=== PATIENT | female | born 1970 | race Caucasian/White ===

== ENCOUNTER 2019-12-23 05:19 | Day surgery (SDC) | payer BC ==
[~2019-12-23] VITALS: Ht 177.8 cm; Wt 104.0 kg
[2019-12-23] VITALS (10 sets, daily range): BP systolic 116–128; BP diastolic 60–84; PULSE 56–74; TEMP 97.5–97.9
[2019-12-23] MEDS ORDERED: LEVOXYL0.1 MG PO (06:11)
[2019-12-23] MEDS ORDERED: LASIX 20MG TABL20 MG PO (06:11)
[2019-12-23] MEDS ORDERED: FASTIN30 MG PO (06:12)
[2019-12-23] MEDS ORDERED: NATURE'S BLEND1 SG3 PO (06:13)
--- NOTE | 2019-12-23 06:14 | NUR ---
TO [facility] AT 0535- CALL LIGHT IN REACH
--- NOTE | 2019-12-23 10:16 | NUR ---
Patient to room via bed from PACU. Alert and oriented x3. Denies pain at this time. [place] to dependent drainage draining clear yellow urine. Incision to low abd with edges well approximated, no redness/swelling/discharge noted. Glue in place. Anamika pad CDI. Patient oriented to room. Provided with water and jello. Denies additional needs.
--- NOTE | 2019-12-23 16:38 | NUR ---
Assist patient up to chair. Small area of blood noted on chux. Patient assisted into bathroom, panties and pad removed, pericare provided, clean mesh panties and pad applied. Patient returns into room and sits up in chair. Rates pain 6/10 in abd, describes as crampy, requests pain pill. Administer Percocet as prescribed. Patient denies additional needs at this time.
--- NOTE | 2019-12-23 18:22 | NUR ---
Patient would like to get back in bed. Assist in transfer from chair to bed. Rates pain in abd 4/10 at this time. Denies any additional needs.
--- NOTE | 2019-12-23 20:45 | NUR ---
Resting in bed. Assessment complete. Lungs clear. Heart sounds normal. Bowels active x4. Pulses present throughout. Bilateral lower ext edema +1. IV left hand infusing without complications. Denies pain. Denies other needs at this time. Call light in reach.
[2019-12-24] VITALS: BP 120/70; PULSE 67; TEMP 97.9
--- NOTE | 2019-12-24 00:25 | NUR ---
Resting in bed. Denies pain. ABD incision CDI. Call light in reach.
--- NOTE | 2019-12-24 02:06 | NUR ---
Resting in bed. Denies needs. Call light in reach.
--- NOTE | 2019-12-24 04:07 | NUR ---
Reports 5/10 lower ABD cramping. Provided with PRN tylenol. Call light in reach.
[2019-12-24 04:55] VITALS: BP 131/72; PULSE 80; TEMP 98.8
--- NOTE | 2019-12-24 06:31 | NUR ---
Patient required x1 dose of tylenol for pain control throughout night. Otherwise uneventful night. Damaris removed this AM at 0610. . Call light in reach.
--- NOTE | 2019-12-24 07:05 | NUR ---
Report given to NICKY Pastor
--- NOTE | 2019-12-24 07:14 | NUR ---
Sitting up in chair. Minimal pain at this time. Patient says that she is going to go in the bathroom here soon to see if she can urinate. Incision to low abd with edges well approximated, no redness/swelling/discharge, glue remains intact, bruising noted at site. Packing remains in place, explain that we will wait on WILLIE Matt, to come in to ask about the packing. Patient denies additional needs at this time.
--- NOTE | 2019-12-24 07:29 | NUR ---
Patient able to void 150ml, urine bloody in color. Packing remains in place. Patient lies in bed, post residual bladder scan performed. Unable to locate any amount of urine in bladder on scan, patient tearful due to pain of pressing on abd area with the scan. Does not want Percocet as it keeps her up. We will ask if this can be changed to [employer] as that has worked well for her in the past. Patient remains in bed. Denies additional needs at this time.
[2019-12-24 07:42] VITALS: BP 130/76; PULSE 67; TEMP 97.8
--- NOTE | 2019-12-24 08:04 | NUR ---
WILLIE aMtt, in room and orders received to remove packing. Packing removed at this time. Patient tolerates with little difficulty. Remains sitting up in bed. Denies needs at this time.
--- NOTE | 2019-12-24 09:08 | NUR ---
Administer Armstrong as prescribed for abd pain per patient request. Remains sitting in bed at this time.
--- NOTE | 2019-12-24 10:15 | NUR ---
Review discharge instructions with the patient. Questions answered. Patient verbalizes understanding and signs discharge paperwork. Discharge packet provided to the patient. Patient will call when her ride is here to pick her up. Will gather all her belongings and get dressed at this time.
--- NOTE | 2019-12-24 11:41 | NUR ---
First visit from the supervisor pumping station. No needs right now.
--- NOTE | 2019-12-24 11:46 | NUR ---
Patient uses call light and explains that her ride is here to pick her up. Basia RN, assists patient out to POV with all personal belongings. Patient requested to walk and refused wheelchair.
== END 2019-12-24 11:46 | disposition home or self-care (01) ==
LOC: SDCO 05:19 → SURG 05:19 → SDCO 07:30 → SURG 10:14 → SDCO 12-24 11:46
DX: N39.3 Stress incontinence (female) (male) (principal); G47.33 Obstructive sleep apnea (adult) (pediatric); E66.9 Obesity, unspecified; E03.9 Hypothyroidism, unspecified; M50.30 Other cervical disc degeneration, unspecified cervical region; Z20.828 Contact with and (suspected) exposure to other viral communicable diseases; Z98.51 Tubal ligation status; Z87.891 Personal history of nicotine dependence; Z79.899 Other long term (current) drug therapy; Z88.1 Allergy status to other antibiotic agents
CPT/HCPCS: OP; A4314; C1762; J0690; J1100; J1170; J1885; J2405; J2704; J3010; J7120

== ENCOUNTER 2020-08-13 08:55 | Observation (INO) | payer BC ==
[~2020-08-13 08:55] MED LIST: FASTIN30 MG PO; LASIX 20MG TABL20 MG PO; LEVOXYL0.1 MG PO; NATURE'S BLEND1 SG3 PO
[2020-08-13 09:46] VITALS: BP 122/63; PULSE 61; TEMP 98.1
[2020-08-13] MEDS ORDERED: PREMPRO 0.3 MG-1 TAB (10:16)
[2020-08-13 11:12] VITALS: BP 112/61; PULSE 65; TEMP 98.1
[2020-08-13 13:37] LABS: BASO % 0.2 % (0.0-2.0); GRAN % 81.7 % (42.2-75.2); HEMOGLOBIN 10.6 g/dl (12.5-16.0); LYMPH # 1.4 (1.2-3.4); LYMPH % 10.5 % (20.0-51.0); MEAN CELL VOLUME 96 fl (80.0-100.0); MEAN CORPUSCULAR HEMOGLOBIN 31 pg (27.0-31.0); MEAN CORPUSCULAR HGB CONC 32 g/dl (33.0-37.0); MEAN PLATELET VOLUME 10.3 fl (7.4-10.4); MONO % 7.3 % (1.7-9.3); PLATELET COUNT 252 K/mm3 (130-400); RED BLOOD COUNT 3.41 M/mm3 (4.10-5.30); REDCELL DISTRIBUTION WIDTH-CV 13.3 % (11.5-14.5)
[2020-08-13 13:38] LABS: HEMATOCRIT 32.8 % (37.0-47.0)
[2020-08-13 16:37] VITALS: BP 121/63; PULSE 62; TEMP 98
--- NOTE | 2020-08-13 19:28 | NUR ---
Patient transferred from [facility] ED for increased pain and cramping following Lap Choley. Upon initial assessment, patient C/O pain rating a 7/10. Provider called, and dilaudid ordered PRN for pain. Normal S1 and S2 sounds present, pedal and radial pulses strong and equal bilaterally, bowel sounds present in all four quadrants, no drainage from lap sites. H&H will continued to be monitored for sign of bleeding. Stable at this time. [place] ordered for pain. Given, patient states that this has helped bring her pain down to a reasonable level. Hot pack in use. Patient denies any further discomfort or needs at this time. Report given to NICKY Link.
--- NOTE | 2020-08-13 20:30 | NUR ---
Initial shift assessment done- states abd pain 06/26 at this time, IS ordered- will call respiratory therapy to bring up for patient, IV fluids of LR at 100cc/hr, up to bathroom with assist, voiding well, O2 sats 97% on room air,, next Hgb check in the AM--will be NPO after MN, K-pad to abdomen.
[2020-08-13 21:30] VITALS: BP 110/60; PULSE 64; TEMP 98.4
[2020-08-13 23:28] VITALS: BP 100/57; PULSE 65; TEMP 98.5
[2020-08-14 04:52] VITALS: BP 113/74; PULSE 77; TEMP 98.6
--- NOTE | 2020-08-14 06:04 | NUR ---
Quiet night- VSS, did sleep well after [place] given around 2214 last night,, did give another pain pill this morning-npo for ? OR
[2020-08-14 06:54] LABS: BASO % 0.3 % (0.0-2.0); EOS % 0.4 % (0-4.0); GRAN # 5.4 (1.4-6.5); GRAN % 59.7 % (42.2-75.2); LYMPH # 2.9 (1.2-3.4); LYMPH % 31.8 % (20.0-51.0); MEAN CELL VOLUME 94 fl (80.0-100.0); MEAN CORPUSCULAR HGB CONC 33 g/dl (33.0-37.0); MEAN PLATELET VOLUME 10.8 fl (7.4-10.4); MONO # 0.7 (0.1-0.6); MONO % 7.4 % (1.7-9.3); PLATELET COUNT 212 K/mm3 (130-400); RED BLOOD COUNT 2.87 M/mm3 (4.10-5.30); REDCELL DISTRIBUTION WIDTH-CV 13.4 % (11.5-14.5)
[2020-08-14 06:59] LABS: HEMOGLOBIN 8.9 g/dl (12.5-16.0); MEAN CORPUSCULAR HEMOGLOBIN 31 pg (27.0-31.0)
[2020-08-14 07:11] LABS: ALBUMIN 3.2 gm/dL (3.5-5.0); BILIRUBIN,TOTAL 1.1 mg/dL (0.0-1.0); CALCIUM 8.1 mg/dL (8.4-10.2); CREATININE, serum 0.74 (0.52-1.25); POTASSIUM 3.4 mmol/L (3.4-5.0); TOTAL PROTEIN 5.9 gm/dL (6.4-8.2)
[2020-08-14 07:29] VITALS: BP 129/70; PULSE 75; TEMP 99
--- NOTE | 2020-08-14 09:20 | NUR ---
Shift assessment complete. Pt up to restroom independently and back to recliner. Denies abdominal pain or nausea. Incisions to abdomen x4 CDI. Bowel sounds active all quadrants. A&Ox4. Heart RRR. Lungs CTA. Using incentive spirometer as directed, hitting 2250. Denies needs at this time. Continuing to monitor.
--- NOTE | 2020-08-14 11:19 | NUR ---
Plan: Surgery VS Home Assessment: SW met with patient about DC plan. Patient reports that she does not know what is going on and does not know if she is DCing or having surgery. Patient reports that she is upset and does not believe that she was communicated with about how this process was tanner to go. Patient rerports that it was to be a one day surgery. Patient reports that she us hungry and tired and that it is not okay for her not to be aware. Patient reports that her PCP is Dr. Da Silva and specialist is Dr. Johnson. Patient reports that she resides in [place] and her mother will be of support to her Misty Schreiber . Patient reports that she uses [facility] for medications. Action: Educated patient on rounding schedule and sympathized with concerns. Notified house of concerns due to patient becoming upset with SW about not having answers and encouraging patient to allow for process.
[2020-08-14 12:34] VITALS: BP 118/57; PULSE 64; TEMP 98.8
[2020-08-14 16:29] VITALS: BP 123/67; PULSE 74; TEMP 98.8
[2020-08-14 20:47] VITALS: BP 110/73; PULSE 68; TEMP 98.8
--- NOTE | 2020-08-14 22:07 | NUR ---
ALERT AND OX 4. PAIN 2/10 UNLESS AMBULATING, TYLENLOL GIVEN FOR PAIN. C.O CONSIPATION. NO BM SINCE LAST THUR. MOM AND COLACE GIVEN W PM MED PASS. ACTIVE BS. ENC MORE AMBULATION. IV TO LT AC INFILTRATED. DC AND DR CLOVIS ORONA W NOT RESTARTED ANOTHER SITE AT THIS TIME. PT REQ ALSO NOT TO HAVE ANOTHER ONE IF POSSIBLE. PLAN OF CARE DISCUISSED.
--- NOTE | 2020-08-15 05:41 | NUR ---
RESTED THROUGHT NIGHT WO INCIDENT. NO BM OF YET BUT CONT TO PASS GAS. MAY NEED TO BE MORE AGGRESSIVE W BM REGIMEN THIS AM. NEEDS MET.
[2020-08-15 07:37] VITALS: BP 124/77; PULSE 62; TEMP 98.5
[2020-08-15 07:57] LABS: HEMATOCRIT 27.5 % (37.0-47.0)
--- NOTE | 2020-08-15 08:45 | NUR ---
Shift assessent complete. A&Ox4. Heart RRR. Lungs CTA. Bowel sounds active. Abdomen soft, nontender, nondistended. Lap sites x4 CDI, open to air. Does report BM this morning but still feels bloated. Denies needs. Call light in reach.
--- NOTE | 2020-08-15 10:30 | NUR ---
Discharge instructions discussed w/pt and all questions answered. Pt escorted out by medical unit staff w/ all belongings.
== END 2020-08-15 10:30 | disposition home or self-care (01) ==
LOC: MEDICAL 08:55
PROVIDERS: Surgery; ADMIT Surgery
DX: K91.870 Postprocedural hematoma of a digestive system organ or structure following a digestive system procedure (principal); Z79.890 Hormone replacement therapy; Z79.899 Other long term (current) drug therapy; Z90.49 Acquired absence of other specified parts of digestive tract
CPT/HCPCS: A9284; G0378; G0379; J1170; J7120